=== PATIENT | male | born 1955 | race Caucasian/White ===

== ENCOUNTER 2020-10-23 11:31 | Emergency (ER) | payer OTHER, SELFPAY ==
[2020-10-23 11:35] VITALS: BP 135/86; PULSE 93; RESP 16; TEMP 36.9; O2SAT 93; BMI 31.8
--- NOTE | 2020-10-23 11:47 | ED_ITS ---
HPI - Epistaxis General: Chief complaint: Epistaxis Stated complaint: NOSEBLEED WON'T STOP Time Seen by Provider: 10/23/20 11:38 History of Present Illness: HPI Narrative: Patient is a 65-year-old male comes to the ED with epistaxis. Patient says he started developing a nosebleed earlier this morning soon as he woke up. Denies any trauma to face. He applied pressure on nose and was able to get it stopped. It then started up again and he was able to get it stopped after several minutes. It started bleeding a third time, then patient used a at home nasal spray and placed gauze up into his left and right nare and came to the ED for evaluation. Patient said that for the past couple days he has been doing some work where he is cutting up some fiberglass type material. He says that he should have been using a mask, but was not for the past couple days. He thinks that some of the particles got into his nose and irritated it causing nosebleed. Associated symptoms: Deny fever(s), headache(s) or vomiting Review of Systems Const: Denies: fever(s), chills or fatigue Eyes: Denies: change in vision or eye discomfort ENMT: Reports: epistaxis; Denies: throat pain, odynophagia, nasal discharge or nasal congestion Card: Denies: chest pain, palpitations, edema, swelling of feet/ankles, dyspnea on exertion or orthopnea Resp: Denies: dyspnea, productive cough or non-productive cough GI: Denies: abdominal pain, nausea, vomiting, diarrhea, constipation or hematochezia : Denies: flank pain, difficulty urinating, dysuria or hematuria Musc: Denies: neck pain, back pain or extremity swelling Skin/Breast: Denies: rash or new lesions Neuro: Denies: headache(s), numbness in extremities or weakness in extremities Physical Exam Const: COMMON NORMALS: no acute distress, patient oriented x3 and alert HENMT: COMMON NORMALS: normocephalic HEAD & SCALP: normocephalic NOSE: Abnormal nasal septum present no septal hematoma and Epistaxis present (No septal hematoma seen. No active bleeding seen upon exam.) on the right anterior source, dried blood present and source not visualized (Source appeared to be on the nasal septum) MOUTH: Normal oral and palatal mucosa present THROAT: posterior oropharynx normal and uvula midline Neck/C-Spine: COMMON NORMALS: supple GENERAL: Yes normal visual inspection Resp: COMMON NORMALS: normal respiratory effort, No retractions, No use of accessory muscles and clear to auscultation bilaterally EFFORT & INSPECTION: Yes able to speak in complete sentences, No tachypneic and No labored AUSCULTATION: clear to auscultation bilaterally and crackles Laterality: right (Mild crackling in the right lower posterior lung.) Cardio: COMMON NORMALS: regular rate, regular rhythm, S1 normal heart sound present, S2 normal heart sound present, No gallops present (Cardio), No clicks present (Cardio), No murmurs present (Cardio) and Peripheral pulses 2+ throughout RATE: regular rate RHYTHM: regular rhythm HEART SOUNDS: S1 normal heart sound present and S2 normal heart sound present PERIPHERAL PULSES: Peripheral pulses 2+ throughout GI: COMMON NORMALS: Normal to inspection, nondistended, normoactive bowel sounds present, Soft to palpation, non-tender and no masses PALPATION: Yes Soft to palpation : COMMON NORMALS: Yes no CVA tenderness BLADDER/KIDNEY EXAM: Yes no CVA tenderness Back/Pelvis: COMMON NORMALS: no CVA tenderness Extremity: COMMON NORMALS: normal to inspection and no pedal edema Neuro: COMMON NORMALS: patient oriented x3 and moves all extremities SENSORIUM/ORIENTATION: Yes alert Skin: GENERAL SKIN EXAM: dry skin Course Vital Signs: Vital signs: Vital Signs Temperature 98.4 F 10/23/20 11:35 Pulse Rate 87 10/23/20 12:02 Respiratory Rate 15 10/23/20 12:02 Blood Pressure 128/92 10/23/20 13:13 Pulse Oximetry 91 10/23/20 12:02 MDM - Epistaxis MDM Narrative: Medical decision making narrative: Patient is a 65-year-old male comes to the ED with epistaxis. Patient had been working with cutting some fiberglass board without a facemask on for the past couple days and he believes that is what irritated his nose causing the bleeds. Here in the ED patient's nosebleed had resolved. Exam showed no signs of active bleeding and no septal hematoma. Lower right lobe of lung had some light crackling upon auscultation. Chest x-ray was performed and showed no pneumonia. Patient was discharged with a nasal clamp and some Afrin and instructed on what to do if he gets a reoccurring nosebleed. Return to ED precautions given. Follow-up with PCP in 7 to 10 days for reevaluation. Patient understood and agree with plan. Imaging Data^: CXR: Attestation: I personally reviewed and interpreted this imaging study as follows: Radiologist's impression: [address] [place] [address] XRay Report Signed Patient: Curtis Alcantara Unit #: [id number] : 1955 Age/Sex: 65 / M ADM Date: 10/23/20 Loc: ER Room/Bed: Attending Dr: Ordering Provider/Ordering MD: Sanjay Carranza Date of Service: 10/23/20 Procedure(s): XR chest 1V portable [id number] Accession Number(s): [id number] Report Number: [id number] PROCEDURE INFORMATION: Exam: XR Chest, 1 View Exam date and time: 10/23/2020 12:33 PM Age: 65 years old Clinical indication: Other: Crackling heard at lower right lung base TECHNIQUE: Imaging protocol: XR of the chest Views: 1 view. COMPARISON: No relevant prior studies available. FINDINGS: Lungs: Low lung volumes are seen. There is left lower lobe atelectasis present. The lungs are otherwise clear. Pleural space: Unremarkable. No pleural effusion. No pneumothorax. Heart/Mediastinum: Unremarkable. No cardiomegaly. Bones/joints: Unremarkable. XR/XR chest 1V portable [id number] IMPRESSION: 1. No acute findings. 2. Low lung volumes 3. Left lower lobe atelectasis Dictated By: Bello Swann Signed By: Bello Swann Signed Date/Time: 10/23/20 1246 DD/ 1245 Discharge Plan Discharge Patient Disposition: Home Clinical Impression: Epistaxis Condition: Stable Prescriptions: New Zofran 4 mg tablet 4 mg PO Q8H Qty: 12 RF: 0 Discharge Orders: Discharge ED (Routine); Ordered 10/23/20 Ordered By: Sanjay Carranza Referrals: Rosa Ballesteros MD [Primary Care Provider] - Discharge Diet: Regular Discharge Activity: Resume usual activity Patient Instructions: Epistaxis (ED) Activity Restrictions/Additional Instructions: Follow-up with medical provider as directed in 7 to 10 days for reevaluation. If reoccurring nosebleed placed gauze in nose and clamp for 15 minutes. Remove and use nasal spray. If nosebleed continues repeat process. If unable to control return to the ER or your medical provider if condition worsens. Please read and understand discharge instructions. If any questions, please ask. Coding Level of Care Code ED Advertising Vice President for Nidhi Fwanita Exam Comprehensive
[2020-10-23 12:02] VITALS: BP 140/93; PULSE 87; RESP 15; O2SAT 91
--- NOTE | 2020-10-23 12:22 | XRR_ITS ---
PROCEDURE INFORMATION: Exam: XR Chest, 1 View Exam date and time: 10/23/2020 12:33 PM Age: 65 years old Clinical indication: Other: Crackling heard at lower right lung base TECHNIQUE: Imaging protocol: XR of the chest Views: 1 view. COMPARISON: No relevant prior studies available. FINDINGS: Lungs: Low lung volumes are seen. There is left lower lobe atelectasis present. The lungs are otherwise clear. Pleural space: Unremarkable. No pleural effusion. No pneumothorax. Heart/Mediastinum: Unremarkable. No cardiomegaly. Bones/joints: Unremarkable. XR/XR chest 1V portable [id number] IMPRESSION: 1. No acute findings. 2. Low lung volumes 3. Left lower lobe atelectasis
[2020-10-23] MEDS: oxymetazoline 0.05% Nasal Spray 15 mL 2 SPRAY NOSTRIL-B (12:50)
[2020-10-23 13:13] VITALS: BP 128/92
== END 2020-10-23 13:13 | disposition home or self-care (01) ==
PROVIDERS: Emergency Provider Physician Assistant; PCP Family Medicine
DX: R04.0 Epistaxis (principal)
CPT/HCPCS: 12345; 71045; 99281; 99282

== ENCOUNTER 2020-10-25 17:18 | Emergency (ER) | payer OTHER, SELFPAY ==
[2020-10-25 17:22] VITALS: BP 147/84; PULSE 87; RESP 18; TEMP 36.8; O2SAT 94; BMI 31.8
[2020-10-25 17:25] VITALS: BP 147/84; PULSE 84; RESP 16; O2SAT 97
--- NOTE | 2020-10-25 18:12 | PC.NURSE ---
Read and agree with assessment.
[2020-10-25] MEDS: silver nitrate applicator 1 EACH TOPICAL (18:50)
--- NOTE | 2020-10-25 19:02 | W.ED.GENADLT ---
HPI - General Adult General: Chief complaint: General Medical Stated complaint: nosebleed Time Seen by Provider: 10/25/20 17:57 History of Present Illness: HPI narrative: The patient is a 65-year-old male who comes to the ER with a right nosebleed that has stopped just prior to arrival. It has been on and off for 2 days and he was given Afrin last time which has helped some but it continues to bleed. Sometimes the blood goes over his septum and to the left nostril and down his throat. Onset (ago): day(s) (2) Location: right Associated symptoms: Deny chest pain, confusion, dyspnea, headache(s), rash or palpitations Review of Systems General: Reports: 10 or more systems reviewed and unremarkable except in HPI and below Const: Denies: fatigue Eyes: Denies: change in vision, blurry vision or eye redness ENMT: Reports: epistaxis; Denies: throat pain, swelling of lips/tongue, ear or mastoid pain or nasal congestion Card: Denies: chest pain, palpitations, irregular heart rhythm, edema, dyspnea on exertion or orthopnea Resp: Denies: dyspnea, productive cough or non-productive cough GI: Denies: abdominal pain, diarrhea or GI cramping : Denies: flank pain, urinary frequency or urinary urgency Musc: Denies: neck pain, back pain, extremity pain, joint pain, joint redness, limited range of motion or muscle weakness Skin/Breast: Denies: rash, pruritus, erythema, skin pain or skin tenderness Neuro: Denies: headache(s), numbness in extremities, weakness in extremities, sensory changes, difficulty walking, dizziness, confusion or Slurred speech present Psych: Denies: anxiety or depression Endo: Denies: polyuria All/Imm: Denies: urticaria, throat swelling or tongue swelling Physical Exam Const: COMMON NORMALS: no acute distress, average body habitus, patient oriented x3, no limitations, healthy appearing, alert and well nourished GENERAL APPEARANCE: cooperative, comfortable, well kempt and well developed ORIENTATION/CONSCIOUSNESS: Yes awake, Yes oriented to person, Yes oriented to place and Yes oriented to time HENMT: COMMON NORMALS: normocephalic, external ears normal and Normal external nose present HEAD & SCALP: normal to inspection and normocephalic NOSE: Normal external nose present EXTERNAL EAR: Yes external ears normal MOUTH: Normal oral and palatal mucosa present THROAT: posterior oropharynx normal OTHER: Right nare blood clot seen on the medial aspect. 3 silver nitrate sticks were used to cauterize the clot. Patient tolerated well Eye: COMMON NORMALS: Equal, round and reactive pupils present and EOMs intact bilaterally GENERAL EYE: appearance normal, both eyes and all related structures PUPIL: Yes Equal, round and reactive pupils present Neck/C-Spine: COMMON NORMALS: full ROM, no lymphadenopathy, no meningeal signs and no JVD GENERAL: Yes normal visual inspection Lymph: LYMPHATIC: no lymphadenopathy noted Chest: COMMONS NORMALS: normal inspection of the chest and normal palpation of entire chest wall Resp: COMMON NORMALS: normal respiratory effort, No retractions, No use of accessory muscles, clear to auscultation bilaterally and percussion normal EFFORT & INSPECTION: Yes able to speak in complete sentences AUSCULTATION: clear to auscultation bilaterally PERCUSSION: percussion normal Cardio: COMMON NORMALS: no JVD, regular rate, regular rhythm, S1 normal heart sound present, S2 normal heart sound present and Peripheral pulses 2+ throughout RATE: regular rate RHYTHM: regular rhythm HEART SOUNDS: S1 normal heart sound present and S2 normal heart sound present PERIPHERAL PULSES: Peripheral pulses 2+ throughout GI: COMMON NORMALS: Normal to inspection, nondistended, normoactive bowel sounds present, Soft to palpation, non-tender and no masses INSPECTION: Yes normal to inspection PALPATION: Yes Soft to palpation : COMMON NORMALS: Yes no CVA tenderness BLADDER/KIDNEY EXAM: Yes no CVA tenderness Back/Pelvis: COMMON NORMALS: no CVA tenderness, thoracic and lumbar spine normal to inspection, no thoracic nor lumbar tenderness and thoraco-lumbar ROM normal Extremity: COMMON NORMALS: normal to inspection, full ROM, capillary refill normal, no joint enlargement and no pedal edema GENERAL: Yes normal exam except as noted Neuro: COMMON NORMALS: patient oriented x3, CN's II-XII intact bilaterally, moves all extremities, no focal motor deficits, no sensory deficits noted and gait normal SENSORIUM/ORIENTATION: Yes alert, Yes oriented to person, Yes oriented to place and Yes oriented to time MENINGEAL SIGNS: Yes no meningeal signs Psych: COMMON NORMALS: mental status grossly normal, Normal thought process present, cooperative, normal affect and speech normal APPEARANCE: Yes well kempt ATTITUDE: Yes calm SPEECH: Yes normal speech THOUGHT PROCESS: Normal thought process present Skin: COMMON NORMALS: no rashes or lesions noted GENERAL SKIN EXAM: no rashes or lesions noted Course Vital Signs: Vital signs: Vital Signs Temperature 98.3 F 10/25/20 17:22 Pulse Rate 84 10/25/20 17:25 Respiratory Rate 16 10/25/20 17:25 Blood Pressure 147/84 10/25/20 17:25 Pulse Oximetry 97 10/25/20 17:25 MDM - General Adult MDM Narrative: Medical decision making narrative: Patient came in with a nosebleed for past 2 days. He has been battling it with Afrin and it comes and goes. I gave him options of going home, cauterizing, and using a Rhino Rocket. The patient shows cauterizing. I used 3 sticks to cauterize his nose and he will be discharged. Placed a case management referral to help him get an ENT appointment. Return to the ER with worsening symptoms Discharge Plan Discharge Patient Disposition: Home Clinical Impression: Epistaxis Condition: Stable Prescriptions: No Action Zofran 4 mg tablet 4 mg PO Q8H Qty: 12 RF: 0 Discharge Orders: Discharge ED (Routine); Ordered 10/25/20 Ordered By: Ludin Ortez Referrals: Rosa Ballesteros MD [Primary Care Provider] - Discharge Diet: Advance as tolerated Discharge Activity: Resume usual activity Patient Instructions: Epistaxis (ED) Activity Restrictions/Additional Instructions: Please return to the ER with worsening symptoms and we will place a Rhino Rocket in your nose. Follow-up with ear nose throat. I have placed a case management referral to help you get an appointment with ear nose throat doctor. They should call you tomorrow Coding Level of Care Code ED Customer Service Associate for Nidhi Mejias
[2020-10-25] MEDS: oxymetazoline 0.05% Nasal Spray 15 mL 2 SPRAY NOSTRIL-R (19:22)
[2020-10-25 19:23] VITALS: PULSE 78; RESP 18; O2SAT 98
--- NOTE | 2020-10-26 09:17 | DCPLANNER ---
Addendum entered by Ritu Brown 10/30/20 07:57: Rosa from [facility] General Surgery emailed case finishing machine adjuster stating that patient was seen by Dr. Eugene on 10.26.20. Original Note: manager forms had message to schedule a follow up appointment for patient with ENT. manager forms emailed patients information to both Rosa and Anay. Patients information will be printed and reviewed. Clinic will call patient with appointment information.
== END 2020-10-25 19:30 | disposition home or self-care (01) ==
PROVIDERS: Emergency Provider Family Medicine; PCP Family Medicine
DX: R04.0 Epistaxis (principal)
CPT/HCPCS: 12345; 30905; 99282